=== PATIENT | male | born 1975 | race Caucasian/White ===

== ENCOUNTER 2017-05-08 13:43 | Emergency (ER) | payer OTHER ==
[~2017-05-08] VITALS: Ht 182.9 cm; Wt 120.0 kg
[2017-05-08 13:47] VITALS: BP 132/88; PULSE 124; RESP 24; TEMP 97.5; O2SAT 94
--- NOTE | 2017-05-08 14:05 | PD ---
HPI . Low back pain and left leg weakness Chief Complaint: Back/ Neck Pain or Injury Time Seen by Provider: 13:54 Travel History International Travel<30 days: No Contact w/Intl Traveler<30days: No Traveled to known affect area: No History of Present Illness HPI This patient presents with the chief complaint of low back pain and paresthesias and weakness of his left lower extremity. Onset of symptoms was acutely on 04/25. He states that he was fine when he went to bed on 04/24. When he went to get out of bed the next morning, his left leg gave way. He subsequently presented himself to an urgent care center who ordered an MRI. The MRI shows L4/L5 posterior disc extrusion with moderate mass effect on the exiting left nerve root as well as the transitting left sided nerve roots, L5/ S1 severe disc desiccation and disc space narrowing with an annular disc protrusion. He was subsequently treated with prednisone, Flexeril and oxycodone. His prednisone was started at 40 mg a day and tapered every 2 days. He is currently taking 20 mg every other day. He reports absolutely no relief with this treatment. There has been no exacerbation of his symptoms. He denies saddle anesthesia or overflow incontinence. He does report constipation associated with the oxycodone. His pain is exacerbated by certain movements. There is no relieving factor. Pain is rated 10/10. PFSH Social History Tobacco Use: No Allergies-Medications (Allergen,Severity, Reaction): Coded Allergies: No Known Allergies (Unverified , 05/08/17) Reported Meds & Prescriptions Reported Meds & Active Scripts Active Reported Oxycodone (Oxycodone HCl) 10 Mg Tab 10 Mg PO Q6H PRN Flexeril (Cyclobenzaprine HCl) 10 Mg Tab 10 Mg PO TID Prednisone (21) 10 mg tab Dose Pack (Prednisone) 10 Mg Pack 20 Mg PO DIRECTED Review of Systems Except as stated in HPI: all other systems reviewed are Neg General / Constitutional: No: Fever, Chills Gastrointestinal: Positive: Constipation Genitourinary: No: Incontinence Musculoskeletal: Positive: Myalgias, Limited ROM, Weakness Neurologic: Positive: Weakness, Focal Abnormalities, Paresthesia, Sensory Disturbance, No: Incontinence Physical Exam Narrative GENERAL: Patient is lying on the stretcher on his left side with a pillow between his knees. SKIN: Warm and dry. HEAD: Normocephalic/atraumatic. EYES: Extraocular movements are intact. NECK: Neck has full range of motion without pain. MUSCULOSKELETAL: Tenderness to percussion in the lower lumbar spine. NEUROLOGICAL: He is moving all 4 extremities. He does not tolerate attempts at straight leg raise on the left. PSYCHIATRIC: Appropriate mood and affect. Data Data Last Documented VS Vital Signs Date Time Temp Pulse Resp B/P (MAP) Pulse Ox O2 Delivery O2 Flow Rate FiO2 05/08/17 13:47 97.5 124 24 132/88 (103) 94 Room Air Orders Orders ^ Saline Lock (05/08/17 14:01) Morphine Inj (Morphine Inj) (05/08/17 14:15) Ondansetron Inj (Zofran Inj) (05/08/17 14:15) Dexamethasone Inj (Decadron Inj) (05/08/17 14:15) Hydromorphone Pf Inj (Dilaudid Pf Inj) (05/08/17 15:00) MDM Medical Decision Making Medical Screen Exam Complete: Yes Emergency Medical Condition: Yes Differential Diagnosis Differential diagnosis includes but is not limited to muscular low back pain, DDD, spinal stenosis, epidural abscess, sciatica, kidney infection or stone. Differential diagnosis of leg pain includes but is not limited to lumbar radiculopathy, arthritis, myalgias, DVT. Narrative Course This patient presents to us complaining with severe back pain with associated left lower extremity paresthesia and weakness. His recent MRI report shows no distress disease with nerve root impingement at L4/L5. He has been treated with a relatively low dose of prednisone. I will give him a dose of Decadron as well as morphine. I will tentatively planned increase his steroids at home. I will change his pain medication from oxycodone to Dilaudid. I will give him a referral to Dr. Portillo. Diagnosis Primary Impression: Lumbar radiculopathy, acute Referrals: Alfredo Portillo MD [facility] Patient Instructions: General Instructions, Lumbar Radiculopathy (ED), Narcotic given in the ED Med/Other Pt SpecificInfo: Prescription(s) given Scripts Diazepam (Valium) 5 Mg Tab 5 MG PO TID Y for muscle spasm, #12 TAB 0 Refills Prov: Heather Nichols MD 05/08/17 Hydromorphone (Dilaudid) 4 Mg Tab 4 MG PO Q4H Y for Pain Management, #12 TAB 0 Refills Prov: Heather Nichols MD 05/08/17 Prednisone (48) 10 mg tab Dose Pack (Prednisone (48) 10 mg tab Dose Pack) 10 Mg Dspk 10 MG PO DIRECTED for Inflammation, #1 DSPK 0 Refills Prov: Heather Nichols MD 05/08/17 Disposition: 01 DISCHARGE HOME Condition: Stable Heather Nichols MD May 08, 2017 14:05
[2017-05-08] MEDS ORDERED: ONDANSETRON HCL 4 MG/2 ML VIAL IV PUSH ONE (14:15)
[2017-05-08] MEDS ORDERED: MORPHINE SULFATE 4 MG/ML INJ IV PUSH ONE (14:15)
[2017-05-08] MEDS ORDERED: DEXAMETHASONE SOD PHOS 20 MG/5 ML VIAL IV PUSH ONE (14:15)
[2017-05-08] MEDS ORDERED: CYCL1TAB29 PO (14:33)
[2017-05-08] MEDS ORDERED: PRED10PA PO (14:33)
[2017-05-08] MEDS ORDERED: OXYC-395 PO (14:34)
[2017-05-08] MEDS ORDERED: HYDROmorphone HCL PF 2 MG/ML VIAL IV PUSH ONE (15:00)
[2017-05-08] MEDS ORDERED: DIAZ5 PO (15:54)
[2017-05-08] MEDS ORDERED: PRED10PA2 PO (15:54)
[2017-05-08] MEDS ORDERED: DILA4TAB2 PO (15:54)
[2017-05-08 16:28] VITALS: BP 110/70
== END 2017-05-08 16:30 | disposition home or self-care (01) ==
LOC: NEPD 13:43
DX: M54.16 Radiculopathy, lumbar region (principal); K59.00 Constipation, unspecified
CPT/HCPCS: 96374; 96375; 99284; J1100; J1170; J2270; J2405